=== PATIENT | female | born 1960 | race African-American/Black ===

== ENCOUNTER 2022-11-30 14:46 | Emergency (ER) | payer OTHER ==
[~2022-11-30] VITALS: Ht 160 cm; Wt 77.0 kg
[2022-11-30 14:56] VITALS: BP 157/88; PULSE 89; RESP 16; O2SAT 100
[2022-11-30] MEDS ORDERED: KETOROLAC TROMETH 60MG/2ML VIAL IM ONE (15:00)
[2022-11-30] MEDS ORDERED: TRAM50TA2 PO (15:45)
[2022-11-30] MEDS ORDERED: IBUP-1454 PO (15:45)
== END 2022-11-30 16:01 | disposition home or self-care (01) ==
LOC: ER 14:46
DX: S39.012A Strain of muscle, fascia and tendon of lower back, initial encounter (principal); V43.62XA Car passenger injured in collision with other type car in traffic accident, initial encounter; Y93.89 Activity, other specified; Y92.410 Unspecified street and highway as the place of occurrence of the external cause; Y99.8 Other external cause status
CPT/HCPCS: 72100; 96372; 99283; J1885